=== PATIENT | female | born 1970 | race Caucasian/White ===

== ENCOUNTER 2022-10-18 12:17 | Day surgery (SDC) | payer BC ==
[2022-10-18] MEDS ORDERED: LORazepam 2 MG/ML SYR.(CARPUJECT) ONE (12:42)
[2022-10-18] MEDS ORDERED: Mag-Al 1200 mg/1200 mg/30 ML UDCUP ONE (14:05)
[2022-10-18] MEDS ORDERED: Lidocaine Viscous Sol 2% 15 ml UD Cup ONE (14:05)
[2022-10-18] MEDS ORDERED: Ondansetron PF 4 MG/2 ML Vial ONE ×2 (14:24→16:05)
[2022-10-18] MEDS ORDERED: Fentanyl 100 MCG/2 ML VIAL ONE (16:02)
[2022-10-18] MEDS ORDERED: Lidocaine 1% PF 5 ML VIAL ONE (16:05)
[2022-10-18] MEDS ORDERED: Dexamethasone 20 MG/5 ML VIAL ONE (16:05)
[2022-10-18] MEDS ORDERED: PROPOFOL 200 MG/20 ML VIAL ONE (16:05)
[2022-10-18] MEDS ORDERED: Succinylcholine Chloride 100 MG/5 ML SYRINGE FS ONE (16:05)
== END 2022-10-18 17:17 | disposition home or self-care (01) ==
LOC: ERS 12:17 → SDC 15:45
PROVIDERS: ATTEND Internal Medicine Gastroenterology
PROC: 0DB38ZX Excision of Lower Esophagus, Via Natural or Artificial Opening Endoscopic, Diagnostic (ICD-10-PCS; principal; 2022-10-18)
PROC: 0DB18ZX Excision of Upper Esophagus, Via Natural or Artificial Opening Endoscopic, Diagnostic (ICD-10-PCS; principal; 2022-10-18)
PROC: 0DC38ZZ Extirpation of Matter from Lower Esophagus, Via Natural or Artificial Opening Endoscopic (ICD-10-PCS; principal; 2022-10-18)
DX: T18.128A Food in esophagus causing other injury, initial encounter (principal); K20.90 Esophagitis, unspecified without bleeding; J30.2 Other seasonal allergic rhinitis; Z80.0 Family history of malignant neoplasm of digestive organs; Z88.0 Allergy status to penicillin; Z88.1 Allergy status to other antibiotic agents; Z88.8 Allergy status to other drugs, medicaments and biological substances; Z91.018 Allergy to other foods; X58.XXXA Exposure to other specified factors, initial encounter
CPT/HCPCS: 36416; 71045; 88305; 93005; 96374; 96375; J1100; J1610; J2060; J2405; J2704; J3010